=== PATIENT | male | born 1935 | race Caucasian/White ===

== ENCOUNTER 2017-09-04 07:52 | Outpatient (CLI) | payer OTHER ==
[~2017-09-04 07:52] MED LIST: B COMPLEX1 TAB PO; B12 5,000 MCG1 EACH SL; COUMADIN7.5 MG PO; COZAAR100 MG PO; GLIMEPIRIDE4 MG; INTEGRA CAPSUL1 EACH PO; JANUMET 50-1,1 UDTAB; LEVAQUIN750 MG PO; LOVENOX80 MG/0.8 SQ; LUMIGAN2.5 M1; NORVASC5 MG PO; SIMVASTATIN20 MG; SYNTHROID50 MCG; TAMS0.4C; TOVIAZ8 MG
== END 2017-09-04 08:00 | disposition home or self-care (01) ==
LOC: LAB 07:52
DX: D50.0 Iron deficiency anemia secondary to blood loss (chronic) (principal); E11.65 Type 2 diabetes mellitus with hyperglycemia; E78.00 Pure hypercholesterolemia, unspecified; E03.0 Congenital hypothyroidism with diffuse goiter; N39.0 Urinary tract infection, site not specified

== ENCOUNTER → 2017-11-04 | Outpatient (CLI) | payer OTHER | END | disposition home or self-care (01) | LOC: WOUND MED 08:16 | DX: E10.622 Type 1 diabetes mellitus with other skin ulcer (principal); L97.322 Non-pressure chronic ulcer of left ankle with fat layer exposed | CPT/HCPCS: 11042; A4554; A4930; A6216; A6266 ==

== ENCOUNTER → 2017-11-04 | Outpatient (CLI) | payer OTHER | END | disposition home or self-care (01) | LOC: TOM 10:14 | DX: I48.1 Persistent atrial fibrillation (principal); E11.9 Type 2 diabetes mellitus without complications; I11.9 Hypertensive heart disease without heart failure; G46.3 Brain stem stroke syndrome; R42 Dizziness and giddiness ==

== ENCOUNTER → 2017-11-11 | Outpatient (CLI) | payer OTHER | END | disposition home or self-care (01) | LOC: WOUND MED 07:25 | DX: E10.622 Type 1 diabetes mellitus with other skin ulcer (principal); L97.322 Non-pressure chronic ulcer of left ankle with fat layer exposed | CPT/HCPCS: 11042; A4554; A4930; A6216; A6219 ==

== ENCOUNTER 2018-03-03 06:43 | Outpatient (CLI) | payer OTHER | END 2018-03-03 06:56 | disposition home or self-care (01) | LOC: LAB 06:43 | DX: D50.0 Iron deficiency anemia secondary to blood loss (chronic) (principal); E11.65 Type 2 diabetes mellitus with hyperglycemia; Z12.11 Encounter for screening for malignant neoplasm of colon; K62.5 Hemorrhage of anus and rectum; R10.84 Generalized abdominal pain; E78.4 Other hyperlipidemia; N40.0 Benign prostatic hyperplasia without lower urinary tract symptoms; E03.0 Congenital hypothyroidism with diffuse goiter; N39.0 Urinary tract infection, site not specified; E55.9 Vitamin D deficiency, unspecified; M81.0 Age-related osteoporosis without current pathological fracture; E11.29 Type 2 diabetes mellitus with other diabetic kidney complication ==

== ENCOUNTER 2018-04-06 08:09 | Outpatient (CLI) | payer OTHER | END 2018-04-06 08:51 | disposition home or self-care (01) | LOC: LAB 08:09 | DX: D68.8 Other specified coagulation defects (principal) ==

== ENCOUNTER 2018-04-14 07:24 | Outpatient (CLI) | payer OTHER | END 2018-04-14 07:40 | disposition home or self-care (01) | LOC: LAB 07:24 | DX: D68.61 Antiphospholipid syndrome (principal); E72.11 Homocystinuria; E72.12 Methylenetetrahydrofolate reductase deficiency; D50.0 Iron deficiency anemia secondary to blood loss (chronic); R97.0 Elevated carcinoembryonic antigen [CEA]; I80.222 Phlebitis and thrombophlebitis of left popliteal vein; Z79.01 Long term (current) use of anticoagulants; I26.99 Other pulmonary embolism without acute cor pulmonale; I48.2 Chronic atrial fibrillation; I10 Essential (primary) hypertension; E08.65 Diabetes mellitus due to underlying condition with hyperglycemia; D52.8 Other folate deficiency anemias; I25.110 Atherosclerotic heart disease of native coronary artery with unstable angina pectoris; I45.6 Pre-excitation syndrome; E53.8 Deficiency of other specified B group vitamins; I73.89 Other specified peripheral vascular diseases; D50.8 Other iron deficiency anemias; D51.8 Other vitamin B12 deficiency anemias; K90.89 Other intestinal malabsorption; D68.8 Other specified coagulation defects ==

== ENCOUNTER 2018-06-03 11:06 | Outpatient (CLI) | payer OTHER | END 2018-06-03 11:42 | disposition home or self-care (01) | LOC: TOM 11:06 | DX: R91.8 Other nonspecific abnormal finding of lung field (principal) ==

== ENCOUNTER → 2018-06-09 07:29 | Outpatient (CLI) | payer OTHER | END | disposition home or self-care (01) | LOC: LAB 07:29 | DX: E11.9 Type 2 diabetes mellitus without complications (principal); E78.00 Pure hypercholesterolemia, unspecified; I48.0 Paroxysmal atrial fibrillation; D68.8 Other specified coagulation defects ==

== ENCOUNTER → 2018-07-06 07:33 | Outpatient (CLI) | payer OTHER | END | disposition home or self-care (01) | LOC: LAB 07:33 | DX: I11.9 Hypertensive heart disease without heart failure (principal); I48.1 Persistent atrial fibrillation ==

== ENCOUNTER → 2018-07-07 | Outpatient (CLI) | payer OTHER | END | disposition home or self-care (01) | LOC: NUCLEAR 07:00 | DX: I20.9 Angina pectoris, unspecified (principal); R07.89 Other chest pain; R55 Syncope and collapse | CPT/HCPCS: 78452; 93017; A9500; J0153 ==

== ENCOUNTER 2019-01-12 09:47 | Outpatient (CLI) | payer OTHER | END 2019-01-12 14:46 | disposition home or self-care (01) | LOC: RAD 09:47 | DX: J44.1 Chronic obstructive pulmonary disease with (acute) exacerbation (principal) ==

== ENCOUNTER 2019-08-06 07:17 | Outpatient (CLI) | payer OTHER | END 2019-08-06 08:01 | disposition home or self-care (01) | LOC: NUCLEAR 07:17 | DX: I48.0 Paroxysmal atrial fibrillation (principal); I25.2 Old myocardial infarction; E11.9 Type 2 diabetes mellitus without complications; Z95.5 Presence of coronary angioplasty implant and graft; I11.9 Hypertensive heart disease without heart failure; I25.110 Atherosclerotic heart disease of native coronary artery with unstable angina pectoris | CPT/HCPCS: 78452; 93017; A9500; J0153 ==

== ENCOUNTER 2020-02-07 08:57 | Outpatient (CLI) | payer OTHER | END 2020-02-07 09:55 | disposition home or self-care (01) | LOC: NUCLEAR 08:57 | PROVIDERS: ATTEND Surgery Surgical Oncology | DX: I82.601 Acute embolism and thrombosis of unspecified veins of right upper extremity (principal); C16.3 Malignant neoplasm of pyloric antrum ==

== ENCOUNTER 2020-10-27 11:43 | Emergency (ER) | payer OTHER ==
[~2020-10-27] VITALS: Ht 175.3 cm; Wt 72.6 kg
[2020-10-27] MEDS ORDERED: ALPHAGAN P5 M2 (12:05)
[2020-10-27] MEDS ORDERED: HYDRALAZINE HCL50 MG (12:05)
== END 2020-10-27 14:26 | disposition home or self-care (01) ==
LOC: ER 11:43
DX: S00.83XA Contusion of other part of head, initial encounter (principal); S40.021A Contusion of right upper arm, initial encounter; W01.198A Fall on same level from slipping, tripping and stumbling with subsequent striking against other object, initial encounter; Y93.01 Activity, walking, marching and hiking; Y92.018 Other place in single-family (private) house as the place of occurrence of the external cause; Y99.8 Other external cause status

== ENCOUNTER 2021-05-28 12:33 | Outpatient (CLI) | payer OTHER ==
[~2021-05-28 12:33] MED LIST changes: +ALPHAGAN P5 M2; +HYDRALAZINE HCL50 MG
== END 2021-05-28 12:34 | disposition home or self-care (01) ==
LOC: LAB 12:33
PROVIDERS: ATTEND Internal Medicine Hematology & Oncology
DX: D50.8 Other iron deficiency anemias (principal); C16.3 Malignant neoplasm of pyloric antrum; D53.0 Protein deficiency anemia; D68.61 Antiphospholipid syndrome; E72.12 Methylenetetrahydrofolate reductase deficiency; D50.0 Iron deficiency anemia secondary to blood loss (chronic); R97.0 Elevated carcinoembryonic antigen [CEA]; I80.222 Phlebitis and thrombophlebitis of left popliteal vein; Z79.01 Long term (current) use of anticoagulants; I26.99 Other pulmonary embolism without acute cor pulmonale; I48.21 Permanent atrial fibrillation; I10 Essential (primary) hypertension; E08.65 Diabetes mellitus due to underlying condition with hyperglycemia; D52.8 Other folate deficiency anemias; I25.110 Atherosclerotic heart disease of native coronary artery with unstable angina pectoris; I45.6 Pre-excitation syndrome; I73.89 Other specified peripheral vascular diseases; K25.4 Chronic or unspecified gastric ulcer with hemorrhage; C16.8 Malignant neoplasm of overlapping sites of stomach; D63.1 Anemia in chronic kidney disease

== ENCOUNTER 2021-07-03 22:38 | Emergency (ER) | payer OTHER ==
[~2021-07-03] VITALS: Ht 180.3 cm; Wt 77.1 kg
[2021-07-03] MEDS ORDERED: CANDESARTAN CILE8 M1 PO (23:46)
[2021-07-03] MEDS ORDERED: INTEGRA PLUS C1 EAC1 PO (23:47)
[2021-07-03] MEDS ORDERED: INTEGRA PLUS C1 EACH PO (23:47)
[2021-07-03] MEDS ORDERED: MAG-G27 MG PO (23:48)
[2021-07-03] MEDS ORDERED: WARFARIN SODIUM6 MG PO (23:48)
[2021-07-03] MEDS ORDERED: ROSUVASTATIN CA20 MG PO (23:48)
[2021-07-03] MEDS ORDERED: ABANEU-SL TABL1 EACH (23:48)
[2021-07-03] MEDS ORDERED: FAMOTIDINE20 MG PO (23:49)
[2021-07-03] MEDS ORDERED: TAMSULOSIN HCL0.4 MG PO (23:49)
[2021-07-03] MEDS ORDERED: SPIRONOLACTONE25 MG PO (23:50)
[2021-07-03] MEDS ORDERED: JANUMET 50-1,01 EACH PO (23:50)
[2021-07-03] MEDS ORDERED: [UNRECOGNIZED DRUG - OTHER] (23:51)
[2021-07-03] MEDS ORDERED: XELPROS2.5 ML OP (23:51)
[2021-07-03] MEDS ORDERED: GLIPIZIDE XL5 MG (23:52)
[2021-07-03] MEDS ORDERED: NEURIN SL (23:52)
[2021-07-03] MEDS ORDERED: TOVIAZ8 MG PO (23:53)
[2021-07-03] MEDS ORDERED: COZAAR100 MG PO (23:53)
[2021-07-03] MEDS ORDERED: TIROSINT50 MCG PO (23:54)
[2021-07-03] MEDS ORDERED: HYDRALAZINE (23:54)
[2021-07-04] MEDS ORDERED: TYLENOL EXTRA500 MG PO (02:29)
== END 2021-07-04 03:28 | disposition home or self-care (01) ==
LOC: ER 22:38
DX: S00.83XA Contusion of other part of head, initial encounter (principal); W18.39XA Other fall on same level, initial encounter; Y93.89 Activity, other specified; Y92.098 Other place in other non-institutional residence as the place of occurrence of the external cause; Y99.8 Other external cause status

== ENCOUNTER 2021-07-12 20:21 | Inpatient (IN) | payer OTHER ==
[~2021-07-12] VITALS: Ht 175.3 cm; Wt 78.0 kg
[~2021-07-12 20:21] MED LIST changes: +ABANEU-SL TABL1 EACH; +CANDESARTAN CILE8 M1 PO; +FAMOTIDINE20 MG PO; +GLIPIZIDE XL5 MG; +HYDRALAZINE; +INTEGRA PLUS C1 EAC1 PO; +INTEGRA PLUS C1 EACH PO; +JANUMET 50-1,01 EACH PO; +MAG-G27 MG PO; +NEURIN SL; +ROSUVASTATIN CA20 MG PO; +SPIRONOLACTONE25 MG PO; +TAMSULOSIN HCL0.4 MG PO; +TIROSINT50 MCG PO; +TOVIAZ8 MG PO; +TYLENOL EXTRA500 MG PO; +WARFARIN SODIUM6 MG PO; +XELPROS2.5 ML OP; +[UNRECOGNIZED DRUG - OTHER]
[2021-07-12] MEDS ORDERED: HYDRALAZINE HCL50 MG PO (20:42)
[2021-07-29] MEDS ORDERED: ELIQUIS2.5 MG PO (13:07)
[2021-07-30] MEDS ORDERED: INTESTINEX680 M1 PO (07:05)
== END 2021-07-30 09:04 | disposition home or self-care (01) | DRG 982 ==
LOC: ER 20:21 → SURG 07-13 10:22 → MEDI 07-13 10:22 → SEC-K 07-13 16:01 → MEDI 07-13 17:54 → SURG 07-23 19:13
PROVIDERS: Surgery; ADMIT Internal Medicine; ATTEND Internal Medicine
PROC: 30233N1 Transfusion of Nonautologous Red Blood Cells into Peripheral Vein, Percutaneous Approach (ICD-10-PCS; 2021-07-13)
PROC: 3E0F7SF Introduction of Other Gas into Respiratory Tract, Via Natural or Artificial Opening (ICD-10-PCS; 2021-07-13)
PROC: BW28ZZZ Computerized Tomography (CT Scan) of Head (ICD-10-PCS; 2021-07-14)
PROC: 4A12X4Z Monitoring of Cardiac Electrical Activity, External Approach (ICD-10-PCS; 2021-07-14)
PROC: 0DJ08ZZ Inspection of Upper Intestinal Tract, Via Natural or Artificial Opening Endoscopic (ICD-10-PCS; 2021-07-17)
PROC: 0DBH8ZX Excision of Cecum, Via Natural or Artificial Opening Endoscopic, Diagnostic (ICD-10-PCS; 2021-07-18)
PROC: B24BZZZ Ultrasonography of Heart with Aorta (ICD-10-PCS; 2021-07-19)
PROC: 05HY33Z Insertion of Infusion Device into Upper Vein, Percutaneous Approach (ICD-10-PCS; 2021-07-20)
PROC: BW2110Z Computerized Tomography (CT Scan) of Abdomen and Pelvis using Low Osmolar Contrast, Unenhanced and Enhanced (ICD-10-PCS; 2021-07-20)
PROC: 0DNF4ZZ Release Right Large Intestine, Percutaneous Endoscopic Approach (ICD-10-PCS; 2021-07-23)
PROC: 0WQF4ZZ Repair Abdominal Wall, Percutaneous Endoscopic Approach (ICD-10-PCS; 2021-07-23)
PROC: 0DTF4ZZ Resection of Right Large Intestine, Percutaneous Endoscopic Approach (ICD-10-PCS; principal; 2021-07-23 13:30)
PROC: 3E0F7GC Introduction of Other Therapeutic Substance into Respiratory Tract, Via Natural or Artificial Opening (ICD-10-PCS; 2021-07-24)
DX: D64.9 Anemia, unspecified (principal); C18.0 Malignant neoplasm of cecum; I50.20 Unspecified systolic (congestive) heart failure; K92.1 Melena; K91.2 Postsurgical malabsorption, not elsewhere classified; E72.12 Methylenetetrahydrofolate reductase deficiency; C16.9 Malignant neoplasm of stomach, unspecified; K43.6 Other and unspecified ventral hernia with obstruction, without gangrene; N17.8 Other acute kidney failure; Z79.01 Long term (current) use of anticoagulants; K66.0 Peritoneal adhesions (postprocedural) (postinfection); I11.0 Hypertensive heart disease with heart failure; I45.6 Pre-excitation syndrome; E03.8 Other specified hypothyroidism; I48.91 Unspecified atrial fibrillation; I25.10 Atherosclerotic heart disease of native coronary artery without angina pectoris; E11.9 Type 2 diabetes mellitus without complications; Z79.4 Long term (current) use of insulin; S09.90XA Unspecified injury of head, initial encounter; S40.021A Contusion of right upper arm, initial encounter; X58.XXXA Exposure to other specified factors, initial encounter; Y93.89 Activity, other specified; Y92.89 Other specified places as the place of occurrence of the external cause; Y99.8 Other external cause status; Z20.822 Contact with and (suspected) exposure to COVID-19

== ENCOUNTER 2021-08-01 16:29 | Inpatient (IN) | payer OTHER ==
[~2021-08-01] VITALS: Ht 175.3 cm; Wt 77.1 kg
[~2021-08-01 16:29] MED LIST changes: +ELIQUIS2.5 MG PO; +HYDRALAZINE HCL50 MG PO; +INTESTINEX680 M1 PO
[2021-08-24] MEDS ORDERED: TAMS0.4C PO (16:49)
[2021-08-24] MEDS ORDERED: ELIQUIS2.5 MG PO (16:50)
[2021-08-24] MEDS ORDERED: INTEGRA PLUS C1 EACH PO (16:50)
[2021-08-24] MEDS ORDERED: ROSUVASTATIN CA20 MG PO (16:52)
[2021-08-24] MEDS ORDERED: LOSARTAN POTASS25 MG PO (16:52)
[2021-08-24] MEDS ORDERED: FUROSEMIDE20 MG PO (16:53)
[2021-08-24] MEDS ORDERED: GLIMEPIRIDE4 MG PO (16:54)
[2021-08-24] MEDS ORDERED: LEVOTHYROXINE50 MCG PO (16:55)
[2021-08-24] MEDS ORDERED: JANUMET 50-1,01 EACH PO (16:56)
[2021-08-24] MEDS ORDERED: THIAMINE HCL100 MG PO (16:59)
[2021-08-24] MEDS ORDERED: ABANEU-SL TABL1 EACH SL (17:00)
[2021-08-24] MEDS ORDERED: B Complex CAPSULE PO (17:02)
[2021-08-24] MEDS ORDERED: TOPROL XL25 M1 PO (17:02)
== END 2021-08-24 22:28 | disposition home or self-care (01) | DRG 638 ==
LOC: ER 16:29 → ICU-2 21:47 → SURH 21:47 → ICU 22:07 → SURH 08-06 14:51
PROVIDERS: ADMIT Internal Medicine; ATTEND Internal Medicine
PROC: B54NZZZ Ultrasonography of Left Upper Extremity Veins (ICD-10-PCS; 2021-08-01)
PROC: 02HV33Z Insertion of Infusion Device into Superior Vena Cava, Percutaneous Approach (ICD-10-PCS; principal; 2021-08-02)
PROC: BW2110Z Computerized Tomography (CT Scan) of Abdomen and Pelvis using Low Osmolar Contrast, Unenhanced and Enhanced (ICD-10-PCS; 2021-08-02)
PROC: 30243R1 Transfusion of Nonautologous Platelets into Central Vein, Percutaneous Approach (ICD-10-PCS; 2021-08-18)
PROC: 30243N1 Transfusion of Nonautologous Red Blood Cells into Central Vein, Percutaneous Approach (ICD-10-PCS; 2021-08-23)
DX: E11.649 Type 2 diabetes mellitus with hypoglycemia without coma (principal); N39.0 Urinary tract infection, site not specified; N13.8 Other obstructive and reflux uropathy; I50.22 Chronic systolic (congestive) heart failure; I48.20 Chronic atrial fibrillation, unspecified; C16.9 Malignant neoplasm of stomach, unspecified; C18.0 Malignant neoplasm of cecum; N40.1 Benign prostatic hyperplasia with lower urinary tract symptoms; N17.8 Other acute kidney failure; R53.81 Other malaise; T45.514A Poisoning by anticoagulants, undetermined, initial encounter; L98.491 Non-pressure chronic ulcer of skin of other sites limited to breakdown of skin; D69.6 Thrombocytopenia, unspecified; D63.0 Anemia in neoplastic disease; B95.2 Enterococcus as the cause of diseases classified elsewhere; I11.0 Hypertensive heart disease with heart failure; I25.10 Atherosclerotic heart disease of native coronary artery without angina pectoris; R33.8 Other retention of urine; Z20.822 Contact with and (suspected) exposure to COVID-19; Z79.01 Long term (current) use of anticoagulants; Z95.810 Presence of automatic (implantable) cardiac defibrillator; Z53.8 Procedure and treatment not carried out for other reasons

== ENCOUNTER 2021-10-08 07:59 | Outpatient (CLI) | payer OTHER ==
[~2021-10-08 07:59] MED LIST changes: +ABANEU-SL TABL1 EACH SL; +B Complex CAPSULE PO; +FUROSEMIDE20 MG PO; +GLIMEPIRIDE4 MG PO; +LEVOTHYROXINE50 MCG PO; +LOSARTAN POTASS25 MG PO; +TAMS0.4C PO; +THIAMINE HCL100 MG PO; +TOPROL XL25 M1 PO
== END 2021-10-08 08:00 | disposition home or self-care (01) ==
LOC: LAB 07:59
PROVIDERS: ATTEND Internal Medicine
DX: C18.9 Malignant neoplasm of colon, unspecified (principal); D50.8 Other iron deficiency anemias; D51.3 Other dietary vitamin B12 deficiency anemia; I10 Essential (primary) hypertension; I48.0 Paroxysmal atrial fibrillation; I50.20 Unspecified systolic (congestive) heart failure; N40.1 Benign prostatic hyperplasia with lower urinary tract symptoms; Z85.028 Personal history of other malignant neoplasm of stomach; Z95.0 Presence of cardiac pacemaker; Z13.1 Encounter for screening for diabetes mellitus; Z13.220 Encounter for screening for lipoid disorders

== ENCOUNTER → 2022-03-14 08:51 | Outpatient (CLI) | payer OTHER | END | disposition home or self-care (01) | LOC: LAB 08:51 | PROVIDERS: ATTEND Internal Medicine Hematology & Oncology | DX: C16.3 Malignant neoplasm of pyloric antrum (principal); C16.8 Malignant neoplasm of overlapping sites of stomach; D50.8 Other iron deficiency anemias; I10 Essential (primary) hypertension; R74.02 Elevation of levels of lactic acid dehydrogenase [LDH]; K76.89 Other specified diseases of liver; D51.8 Other vitamin B12 deficiency anemias; D63.1 Anemia in chronic kidney disease; E03.8 Other specified hypothyroidism; D68.8 Other specified coagulation defects; D68.61 Antiphospholipid syndrome; D50.0 Iron deficiency anemia secondary to blood loss (chronic); R97.0 Elevated carcinoembryonic antigen [CEA]; R97.8 Other abnormal tumor markers; I80.222 Phlebitis and thrombophlebitis of left popliteal vein; I26.99 Other pulmonary embolism without acute cor pulmonale; I25.110 Atherosclerotic heart disease of native coronary artery with unstable angina pectoris; I45.6 Pre-excitation syndrome; I73.9 Peripheral vascular disease, unspecified; K25.4 Chronic or unspecified gastric ulcer with hemorrhage; E72.12 Methylenetetrahydrofolate reductase deficiency ==

== ENCOUNTER 2022-03-19 15:14 | Emergency (ER) | payer OTHER ==
[~2022-03-19] VITALS: Ht 177.8 cm; Wt 73.5 kg
== END 2022-03-19 17:24 | disposition home or self-care (01) ==
LOC: ER 15:14
DX: S50.811A Abrasion of right forearm, initial encounter (principal); X58.XXXA Exposure to other specified factors, initial encounter; Y93.9 Activity, unspecified; Y92.89 Other specified places as the place of occurrence of the external cause; Y99.9 Unspecified external cause status; Z88.2 Allergy status to sulfonamides; Z88.0 Allergy status to penicillin; Z91.013 Allergy to seafood

== ENCOUNTER 2022-04-01 07:43 | Outpatient (CLI) | payer OTHER | END 2022-04-01 07:45 | disposition home or self-care (01) | LOC: TOM 07:43 | PROVIDERS: ATTEND Internal Medicine Hematology & Oncology | DX: C18.0 Malignant neoplasm of cecum (principal); C16.8 Malignant neoplasm of overlapping sites of stomach; C16.3 Malignant neoplasm of pyloric antrum; D50.8 Other iron deficiency anemias | CPT/HCPCS: 74177; Q9965 ==

== ENCOUNTER 2022-07-22 08:38 | Outpatient (CLI) | payer OTHER | END 2022-07-22 15:02 | disposition home or self-care (01) | LOC: LAB 08:38 | PROVIDERS: ATTEND Internal Medicine | DX: Z95.810 Presence of automatic (implantable) cardiac defibrillator (principal); I47.29 Other ventricular tachycardia; E03.9 Hypothyroidism, unspecified; C18.2 Malignant neoplasm of ascending colon; I48.0 Paroxysmal atrial fibrillation; I50.20 Unspecified systolic (congestive) heart failure; N40.1 Benign prostatic hyperplasia with lower urinary tract symptoms; Z85.028 Personal history of other malignant neoplasm of stomach ==

== ENCOUNTER 2022-10-23 21:54 | Emergency (ER) | payer OTHER ==
[~2022-10-23] VITALS: Ht 175.3 cm; Wt 63.5 kg
== END 2022-10-24 07:41 ==
LOC: ER 21:54
DX: K40.90 Unilateral inguinal hernia, without obstruction or gangrene, not specified as recurrent (principal); E11.9 Type 2 diabetes mellitus without complications; Z79.84 Long term (current) use of oral hypoglycemic drugs; I10 Essential (primary) hypertension; Z88.0 Allergy status to penicillin; Z91.013 Allergy to seafood; Z88.2 Allergy status to sulfonamides; Z85.9 Personal history of malignant neoplasm, unspecified

== ENCOUNTER → 2022-11-01 | Outpatient (CLI) | payer OTHER | END | disposition home or self-care (01) | LOC: RAD 10:29 | PROVIDERS: ATTEND Internal Medicine | DX: Z01.818 Encounter for other preprocedural examination (principal) ==

== ENCOUNTER 2022-11-11 05:50 | Day surgery (SDC) | payer OTHER | END 2022-11-11 10:50 | disposition home or self-care (01) | LOC: AMB-ENDOS 05:50 | PROVIDERS: ATTEND Surgery | DX: K63.89 Other specified diseases of intestine (principal); Z85.038 Personal history of other malignant neoplasm of large intestine; D50.9 Iron deficiency anemia, unspecified; Z20.822 Contact with and (suspected) exposure to COVID-19; Z88.0 Allergy status to penicillin; Z88.2 Allergy status to sulfonamides; Z88.1 Allergy status to other antibiotic agents ==

== ENCOUNTER 2023-01-14 08:47 | Outpatient (CLI) | payer OTHER | END 2023-01-14 08:49 | disposition home or self-care (01) | LOC: LAB 08:47 | PROVIDERS: ATTEND Surgery | DX: Z01.818 Encounter for other preprocedural examination (principal); K40.90 Unilateral inguinal hernia, without obstruction or gangrene, not specified as recurrent; D65 Disseminated intravascular coagulation [defibrination syndrome] ==

== ENCOUNTER 2023-02-10 07:22 | Outpatient (CLI) | payer OTHER ==
[~2023-02-10 07:22] MED LIST changes: +ALPHAGAN P5 ML OP; +LATA; +NEURIN PO; +SYNTHROID50 MCG PO; +VITAMIN B-121000 MC4 PO; +[UNRECOGNIZED DRUG - OTHER] PO
== END 2023-02-10 07:23 | disposition home or self-care (01) ==
LOC: LAB 07:22
PROVIDERS: ATTEND Surgery
DX: Z01.818 Encounter for other preprocedural examination (principal); Z20.828 Contact with and (suspected) exposure to other viral communicable diseases; K40.90 Unilateral inguinal hernia, without obstruction or gangrene, not specified as recurrent

== ENCOUNTER 2023-02-12 05:35 | Day surgery (SDC) | payer OTHER ==
[2023-02-12] MEDS ORDERED: PERCOCET 5-3251 EACH PO (12:49)
[2023-02-12] MEDS ORDERED: POLY119PG PO (12:49)
== END 2023-02-12 16:50 | disposition home or self-care (01) ==
LOC: CIR.AMB 05:35
PROVIDERS: ATTEND Surgery
DX: K40.90 Unilateral inguinal hernia, without obstruction or gangrene, not specified as recurrent (principal); Z88.0 Allergy status to penicillin; Z88.2 Allergy status to sulfonamides; Z88.6 Allergy status to analgesic agent; Z91.013 Allergy to seafood; Z20.822 Contact with and (suspected) exposure to COVID-19

== ENCOUNTER → 2023-04-16 07:03 | Outpatient (CLI) | payer OTHER ==
[~2023-04-16 07:03] MED LIST changes: +PERCOCET 5-3251 EACH PO; +POLY119PG PO
[2023-04-16 07:59] LABS: HEMATOCRIT 34.7 % (39.0-48.0); HEMOGLOBIN 11.5 g/dL (13-16.00); MEAN CELL VOLUME 98.9 fL (80.0-100.00); MEAN CORPUSCULAR HEMOGLOBIN 32.9 pg (27.00-32.0); MEAN CORPUSCULAR HGB CONC 33.2 g/dl (32.0-36.0); PLATELET COUNT 130 K/uL (150-450); RED CELL DISTRIBUTION WIDTH 14.3 % (11.5-14.5)
[2023-04-16 08:25] LABS: ALBUMIN 3.5 gm/dL (3.4-5.0); BILIRUBIN TOTAL 0.6 mg/dL (0.3-1.2); CREATININE SERUM 1.01 mg/dL (0.70-1.30); GFR 69.71; GLOBULINA 3.6 G/DL (2.4-3.5); POTASSIUM 5.12 mEq/L (3.5-5.1); PROSTATIC SPECIFIC ANTIGEN 0.659 NG/ML (0.010-4.00); TOTAL PROTEIN 7.1 gm/dL (6.4-8.2)
[2023-04-16 11:03] LABS: MANUAL PLATELET COUNT 194
[2023-04-16 11:04] LABS: PLATELET ESTIMATE NORMAL (NORMAL)
== END | disposition home or self-care (01) ==
LOC: LAB 07:03
PROVIDERS: ATTEND Internal Medicine Hematology & Oncology
DX: I10 Essential (primary) hypertension (principal); R74.02 Elevation of levels of lactic acid dehydrogenase [LDH]; K76.89 Other specified diseases of liver; D68.59 Other primary thrombophilia; E72.11 Homocystinuria; R97.0 Elevated carcinoembryonic antigen [CEA]; R97.8 Other abnormal tumor markers; R97.20 Elevated prostate specific antigen [PSA]; C18.0 Malignant neoplasm of cecum; C16.8 Malignant neoplasm of overlapping sites of stomach; C16.3 Malignant neoplasm of pyloric antrum; D50.8 Other iron deficiency anemias; D53.0 Protein deficiency anemia; E72.12 Methylenetetrahydrofolate reductase deficiency; D50.0 Iron deficiency anemia secondary to blood loss (chronic); I80.222 Phlebitis and thrombophlebitis of left popliteal vein; Z79.01 Long term (current) use of anticoagulants; I26.99 Other pulmonary embolism without acute cor pulmonale; E08.65 Diabetes mellitus due to underlying condition with hyperglycemia; I25.110 Atherosclerotic heart disease of native coronary artery with unstable angina pectoris; I45.6 Pre-excitation syndrome; E53.8 Deficiency of other specified B group vitamins; I73.9 Peripheral vascular disease, unspecified; K25.4 Chronic or unspecified gastric ulcer with hemorrhage; Z88.0 Allergy status to penicillin; Z88.2 Allergy status to sulfonamides; Z88.6 Allergy status to analgesic agent; Z91.013 Allergy to seafood

== ENCOUNTER 2023-08-30 07:42 | Outpatient (CLI) | payer OTHER ==
[2023-08-30 09:13] LABS: ALBUMIN 3.7 gm/dL (3.4-5.0); BILIRUBIN TOTAL 0.88 mg/dL (0.3-1.2); CALCIUM 8.8 mg/dL (8.5-10.1); CHOL HDL RATIO 1.4 (0-5.0); CREATININE SERUM 0.98 mg/dL (0.70-1.30); GFR 72.02; GLOBULINA 3.5 G/DL (2.4-3.5); POTASSIUM 4.56 mEq/L (3.5-5.1); TOTAL PROTEIN 7.2 gm/dL (6.4-8.2)
[2023-08-30 10:10] LABS: HEMATOCRIT 33.8 % (39.0-48.0); HEMOGLOBIN 11.4 g/dL (13-16.00); MEAN CELL VOLUME 98.6 fL (80.0-100.00); MEAN CORPUSCULAR HEMOGLOBIN 33.2 pg (27.00-32.0); MEAN CORPUSCULAR HGB CONC 33.8 g/dl (32.0-36.0); RED BLOOD COUNT 3.43 M/uL (4.00-6.00); RED CELL DISTRIBUTION WIDTH 14.1 % (11.5-14.5)
[2023-08-30 10:12] LABS: PLATELET COUNT 129 K/uL (150-450)
== END 2023-08-30 07:47 | disposition home or self-care (01) ==
LOC: LAB 07:42
PROVIDERS: ATTEND Internal Medicine Hematology & Oncology
DX: E11.9 Type 2 diabetes mellitus without complications (principal); E78.2 Mixed hyperlipidemia

== ENCOUNTER 2023-10-04 09:48 | Outpatient (CLI) | payer OTHER ==
[2023-10-04 10:41] LABS: HEMATOCRIT 36.5 % (39.0-48.0); HEMOGLOBIN 12.2 g/dL (13-16.00); MEAN CELL VOLUME 97.4 fL (80.0-100.00); MEAN CORPUSCULAR HEMOGLOBIN 32.5 pg (27.00-32.0); MEAN CORPUSCULAR HGB CONC 33.4 g/dl (32.0-36.0); PLATELET COUNT 137 K/uL (150-450); RED BLOOD COUNT 3.75 M/uL (4.00-6.00); RED CELL DISTRIBUTION WIDTH 14.3 % (11.5-14.5)
[2023-10-04 10:47] LABS: PH,URINE 5.5 (5.0-8.0); URINE APPEARANCE Cloudy; URINE BILIRRUBIN Negative (NEGATIVE); URINE BLOOD Trace; URINE COLOR Yellow; URINE GLUCOSE Negative (NEGATIVE); URINE LEUKOCYTE Small; URINE NITRATE Negative; URINE PROTEIN Trace (NEGATIVE); URINE UROBILINOGEN 0.2 E.U./dl
[2023-10-04 10:48] LABS: URINE BACTERIA 71.8 uL (0.0-1933); URINE EPITHELIAL CELLS 3.2 uL (0.0-38.8); URINE RBC 19.4 uL (0.0-20.8)
[2023-10-04 11:32] LABS: ALKALINE PHOSPHATASE 81 U/L (50-136); ALT/SGPT 66 U/L (12-78); ANION GAP 8 (10.0-20.0); AST/SGOT 53 U/L (15-37); BILIRUBIN TOTAL 0.96 mg/dL (0.3-1.2); BLOOD UREA NITROGEN 31 mg/dL (7-18); BUN CREA RATIO 28 (7.0-25.0); CARBON DIOXIDE 32 mEq/L (21-32); CHLORIDE 108 mmol/L (98-107); CHOL HDL RATIO 1.3 (0-5.0); CHOLESTEROL 106 mg/dL (0-200); CREATININE SERUM 1.12 mg/dL (0.70-1.30); GFR 61.73; GLOBULINA 3.9 G/DL (2.4-3.5); GLUCOSE FASTING 120 mg/dL (65-100); HDL 80 mg/dl (40-60); LDL 16 mg/dl (0-130); OSMOLALITY SERUM 293 MOSM/KG (275-295); POTASSIUM 4.99 mEq/L (3.5-5.1); SODIUM 143 mmol/L (136-145); T4 TOTAL 9.04 UG/DL (4.5-12.1); TOTAL PROTEIN 7.9 gm/dL (6.4-8.2); TRIGLYCERIDES 48 mg/dL (0-150); VLDL 9 (0-39)
[2023-10-04 11:38] LABS: C-REACTIVE PROTEIN < 0.29 MG/DL (0.00-0.29)
== END 2023-10-04 09:59 | disposition home or self-care (01) ==
LOC: LAB 09:48
PROVIDERS: ATTEND Internal Medicine
DX: Z95.810 Presence of automatic (implantable) cardiac defibrillator (principal); I50.22 Chronic systolic (congestive) heart failure; E03.9 Hypothyroidism, unspecified; E11.9 Type 2 diabetes mellitus without complications; I10 Essential (primary) hypertension; C18.2 Malignant neoplasm of ascending colon; I50.20 Unspecified systolic (congestive) heart failure; N40.1 Benign prostatic hyperplasia with lower urinary tract symptoms; Z85.028 Personal history of other malignant neoplasm of stomach; Z95.0 Presence of cardiac pacemaker; E55.9 Vitamin D deficiency, unspecified